=== PATIENT | female | born 1990 | race Caucasian/White ===

== ENCOUNTER 2023-01-24 14:40 | Emergency (ER) | payer OTHER ==
[2023-01-24] MEDS ORDERED: SODIUM CHLORIDE 0.9% 1,000 ML IV STA (15:14)
--- NOTE | 2023-01-24 15:17 | ED Physician Documentation ---
PD HPI FEMALE - Stated complaint Stated Complaint: CRAMPING FEMALE - Chief complaint Chief Complaint: Abd Pain - History obtained from History obtained from: Patient - Additional information Additional information: Patient is a 32-year-old female who Has recently taken 3 positive home test presenting for evaluation of vaginal bleeding that has been spotting and brighter red today. No clots. No significant lower abdominal pain. Her last menses was November 26. No prior history of pregnancies. No prior abdominal surgeries. Mild nausea but no vomiting. No dysuria or hematuria. Review of Systems Constitutional: denies: Fever Cardiac: denies: Chest pain / pressure Respiratory: denies: Dyspnea GI: denies: Abdominal Pain : reports: Vaginal bleeding. denies: Dysuria Neurologic: denies: Headache PD PAST MEDICAL HISTORY - Present Medications Home Medications: Ambulatory Orders Medication Instructions Recorded Confirmed No Known Home Medications 01/24/23 01/24/23 - Allergies Allergies/Adverse Reactions: Allergies Allergy/AdvReac Type Severity Reaction Status Date / Time No Known Drug Allergies Allergy Verified 01/24/23 14:58 PD ED PE NORMAL - General General: Alert and oriented X 3, No acute distress, Well developed/nourished - HEENT HEENT: Atraumatic - Neck Neck: Supple, no meningeal sign - Cardiac Cardiac: RRR, Strong equal pulses - Respiratory Respiratory: No respiratory distress, Clear bilaterally - Abdomen Abdomen: Soft, Non tender - Back Back: No CVA TTP - Derm Derm: Warm and dry - Neuro Neuro: Normal speech Results - Vitals Vitals: Vital Signs - 24 hr 01/24/23 01/24/23 14:53 17:00 Temperature 37.1 C Heart Rate 97 88 Respiratory 15 16 Rate Blood Pressure 150/113 H 128/80 O2 Saturation 98 99 Oxygen O2 Source Room air - Labs Labs: Laboratory Tests 01/24/23 01/24/23 01/24/23 15:14 15:14 15:14 WBC 7.9 RBC 5.37 Hgb 14.2 Hct 44.5 MCV 82.9 MCH 26.4 L MCHC 31.9 L RDW 12.8 Plt Count 378 MPV 8.9 Neut # (Auto) 4.8 Lymph # (Auto) 2.4 [place] # (Auto) 0.5 Eos # (Auto) 0.1 Baso # (Auto) 0.0 Absolute Nucleated RBC 0.00 Nucleated RBC % 0.0 Sodium 136 Potassium 3.9 Chloride 103 Carbon Dioxide 26 Anion Gap 7.0 BUN 9 Creatinine 0.6 Estimated GFR (MDRD) 114 Glucose 106 H Calcium 9.8 Total Bilirubin 0.4 AST 16 ALT 21 Alkaline Phosphatase 56 Total Protein 8.1 Albumin 4.6 Globulin 3.5 Albumin/Globulin Ratio 1.3 Lipase 15 Beta HCG, Quant Urine Color Urine Clarity Urine pH Ur Specific [place] Urine Protein Urine Glucose (UA) Urine Ketones Urine Occult Blood Urine Nitrite Urine Bilirubin Urine Urobilinogen Ur Leukocyte Esterase Urine RBC Urine WBC Ur Squamous Epith Cells Urine Bacteria Ur Microscopic Review Urine Culture Comments Blood Type A POSITIVE 01/24/23 01/24/23 15:14 16:05 WBC RBC Hgb Hct MCV MCH MCHC RDW Plt Count MPV Neut # (Auto) Lymph # (Auto) [place] # (Auto) Eos # (Auto) Baso # (Auto) Absolute Nucleated RBC Nucleated RBC % Sodium Potassium Chloride Carbon Dioxide Anion Gap BUN Creatinine Estimated GFR (MDRD) Glucose Calcium Total Bilirubin AST ALT Alkaline Phosphatase Total Protein Albumin Globulin Albumin/Globulin Ratio Lipase Beta HCG, Quant 6928.8 Urine Color YELLOW Urine Clarity CLEAR Urine pH 7.0 Ur Specific [place] 1.010 Urine Protein NEGATIVE Urine Glucose (UA) NEGATIVE Urine Ketones NEGATIVE Urine Occult Blood MODERATE H Urine Nitrite NEGATIVE Urine Bilirubin NEGATIVE Urine Urobilinogen 0.2 (NORMAL) Ur Leukocyte Esterase NEGATIVE Urine RBC 6-10 H Urine WBC 0-3 Ur Squamous Epith Cells MANY Squamous H Urine Bacteria Few Ur Microscopic Review INDICATED Urine Culture Comments NOT INDICATED Blood Type PD Medical Decision Making - ED course Complexity details: reviewed results, re-evaluated patient, d/w patient ED course: Patient is a 32-year-old with positive home test presenting for evaluation with vaginal bleeding. She has not had a confirmatory ultrasound. Initial BP is elevated but repeat is improved. Her abdominal exam is benign. Otherwise vitals are stable. A CBC, chemistries, hCG, urine analysis and blood type were obtained and reviewed. hCG is 6800. Blood type is a positive so she does not need RhoGAM. Ultrasound was obtained which shows a single live intrauterine measuring approximately 6 weeks. This does not exactly measure with her dates given. There is also the presence of subchorionic hemorrhage. I did review the results with the patient and she is aware of need for close OB follow-up as she may need repeat hCG or ultrasound. I did explain strict return precautions for any worsening symptoms. Departure - Departure Disposition: 01 Home, Self Care Instructions: ED Miscarriage Poss Follow-Up: SHERIF Helton [Provider Group] Comments: Your hormone level (hCG) is 6928. Your ultrasound shows that you are approximately 6 weeks . This is not matching up with the dates from your last menstrual period. Your blood type is A positive. [facility] for [facility]. You may need closer monitoring with recheck of your hormone level or another ultrasound as the dates from today's ultrasound is not matching up as well with your menstrual dates. There is a small amount of blood which may be the source of the vaginal bleeding you are experiencing. No sexual intercourse or tampons or anything in the vagina until the bleeding has resolved. Please continue with your vitamins. Return to the ER with any worsening symptoms such as saturating a pad with blood An hour for a few hours. TECHNIQUE: Real-time scanning was performed of the fetus and maternal pelvic organs, with image documentation. COMPARISON: None. FINDINGS: Intrauterine gestational sac present. Embryo: There is an intrauterine gestational sac seen, with a pole present, which measures 0.34 cm, which corresponds to an estimated gestational age of 6 weeks 0 days. cardiac activity is seen, with a measured heart rate of 133 bpm. There is p erigestational/subchorionic hemorrhage can be seen, which measures 0.45 x 0.37 x 0.66 cm. Internal debris can be seen within the gestational sac. Other: No perigestational fluid collection. Measurement variability in dating: +/- 4 weeks by LMP, +/- 7 days by mean sac diameter (use before 6 weeks gestation if crown-rump length not able to be measured), +/- 5 days by crown-rump length (6- 12 weeks gestation). Maternal organs: A cystic focus can be seen within the uterus, seen separate from the gestational sac near the uterine enlargement measuring up to 1.4 cm. Ovaries appear within normal limits. There is made of a left ovarian corpus luteum cyst. IMPRESSION: Single live intrauterine . Mild likely subchorionic hemorrhage. The estimated gestational age based upon these images is nearly 3 weeks discrepant from the menstrual dating. Please correlate with precise clinical dating. Forms: PCP List Discharge Date/Time: 01/24/23 17:01
[2023-01-24 15:21] LABS: BASOPHILS % (AUTO) 0.5 %; EOSINOPHILS # (AUTO) 0.1 10^3/uL (0.0-0.7); HCT - HEMATOCRIT 44.5 % (37.0-47.0); HGB - HEMOGLOBIN 14.2 g/dL (12.0-16.0); LYMPHOCYTES # (AUTO) 2.4 10^3/uL (1.5-3.5); LYMPHOCYTES % (AUTO) 30.6 %; MEAN CORPUSCULAR HEMOGLOBIN 26.4 pg (27.0-31.0); MEAN CORPUSCULAR HGB CONC 31.9 g/dL (32.0-36.0); MEAN CORPUSCULAR VOLUME 82.9 fL (81.0-99.0); MEAN PLATELET VOLUME 8.9 fL (7.9-10.8); MONOCYTES # (AUTO) 0.5 10^3/uL (0.0-1.0); MONOCYTES % (AUTO) 6.6 %; NEUTROPHILS # (AUTO) 4.8 10^3/uL (1.5-6.6); PLT - PLATELET COUNT 378 10^3/uL (130-450); RED BLOOD COUNT 5.37 10^6/uL (4.20-5.40); RED CELL DISTRIBUTION WIDTH 12.8 % (12.0-15.0); WHITE BLOOD COUNT 7.9 x10^3/uL (4.8-10.8)
[2023-01-24 15:37] LABS: ALBUMIN 4.6 g/dL (3.2-5.5); ALBUMIN/GLOBULIN RATIO 1.3 (1.0-2.2); BILIRUBIN,TOTAL 0.4 mg/dL (0.2-1.0); CALCIUM 9.8 mg/dL (8.5-10.3); CREATININE 0.6 mg/dL (0.6-1.3); POTASSIUM 3.9 mmol/L (3.5-4.5); TOTAL PROTEIN 8.1 g/dL (6.4-8.9)
[2023-01-24 16:11] LABS: BILIRUBIN,URINE NEGATIVE (NEGATIVE); GLUCOSE, URINE (UA) NEGATIVE (NEGATIVE); KETONES,URINE (UA) NEGATIVE (NEGATIVE); LEUKOCYTE ESTERASE, URINE NEGATIVE (NEGATIVE); NITRITE,URINE NEGATIVE (NEGATIVE); OCCULT BLOOD,URINE MODERATE (NEGATIVE); PROTEIN,URINE NEGATIVE (NEGATIVE); UROBILINOGEN,URINE 0.2 (NORMAL) E.U./dL (NORMAL)
--- NOTE | 2023-01-24 16:19 | Ultrasound Report ---
PROCEDURE: OB First Trimester INDICATIONS: Bleeding in early OUTSIDE/PRIOR DATING DATA: Last menstrual period (LMP): 11/26/2022. LMP-based estimated date of delivery (JAIRO): 09/02/2023. First dating scan (date and location): , 01/24/2023. Estimated date of delivery (JAIRO) from first dating scan: 09/19/2023. TECHNIQUE: Real-time scanning was performed of the fetus and maternal pelvic organs, with image documentation. COMPARISON: None. FINDINGS: Intrauterine gestational sac present. Embryo: There is an intrauterine gestational sac seen, with a pole present, which measures 0.3 4 cm, which corresponds to an estimated gestational age of 6 weeks 0 days. cardiac activity is seen, with a measured heart rate of 133 bpm. There is perigestational/subchorionic hemorrhage can b e seen, which measures 0.45 x 0.37 x 0.66 cm. Internal debris can be seen within the gestational sac . Other: No perigestational fluid collection. Measurement variability in dating: +/- 4 weeks by LMP, +/- 7 days by mean sac diameter (use before 6 weeks gestation if crown-rump length not able to be measured), +/- 5 days by crown-rump length (6-12 weeks gestation). Maternal organs: A cystic focus can be seen within the uterus, seen separate from the gestational sa c near the uterine enlargement measuring up to 1.4 cm. Ovaries appear within normal limits. There is made of a left ovarian corpus luteum cyst. IMPRESSION: Single live intrauterine . Mild likely subchorionic hemorrhage. The estimated gestational age based upon these images is nearly 3 weeks discrepant from the menstrual dating. Please correlate with precise clinical dating. There is a 1.4 similar cystic focus seen separate from the gestational sac near the uterine fundus. Close clinical follow-up with serial beta hCG measurements and serial ultrasound would be recommended , as clinically appropriate. Reviewed by: Bill Sorto MD on 01/24/2023 3:18 PM MACY Approved by: Bill Sorto MD on 01/24/2023 3:18 PM MACY Station ID: [id number]
[2023-01-24 16:20] LABS: CLARITY,URINE CLEAR (CLEAR)
--- NOTE | 2023-01-24 16:23 | Ultrasound Report ---
PROCEDURE: OB Transvaginal INDICATIONS: Bleeding in early OUTSIDE/PRIOR DATING DATA: Last menstrual period (LMP): 11/26/2022. LMP-based estimated date of delive ry (JAIRO): 09/02/2023. First dating scan (date and location): , 01/24/2023. Estimated date of delivery (JAIRO) from first dating scan: 09/19/2023. TECHNIQUE: Real-time scanning was performed of the fetus a nd maternal pelvic organs, with image documentation. COMPARISON: None. FINDINGS: Intrauterine gesta tional sac present. Embryo: There is an intrauterine gestational sac seen, with a pole present , which measures 0.34 cm, which corresponds to an estimated gestational age of 6 weeks 0 days. cardiac activity is seen, with a measured heart rate of 133 bpm. There is perigestational/subchorioni c hemorrhage can be seen, which measures 0.45 x 0.37 x 0.66 cm. Internal debris can be seen within th e gestational sac. Other: No perigestational fluid collection. Measurement variability in dating: + /- 4 weeks by LMP, +/- 7 days by mean sac diameter (use before 6 weeks gestation if crown-rump length not able to be measured), +/- 5 days by crown-rump length (6-12 weeks gestation). Maternal organs: A cystic focus can be seen within the uterus, seen separate from the gestational sac near the uterine enlargement measuring up to 1.4 cm. Ovaries appear within normal limits. There is made of a left ov carrie corpus luteum cyst. IMPRESSION: Single live intrauterine . Mild likely subchorionic hemorrhage. The estimated gestational age based upon these images is nearly 3 weeks discrepant from the menstrual dating. Plea se correlate with precise clinical dating. There is a 1.4 similar cystic focus seen separate from th e gestational sac near the uterine fundus. Close clinical follow-up with serial beta hCG measurement s and serial ultrasound would be recommended, as clinically appropriate. Reviewed by: Bill Sorto MD on 01/24/2023 3:21 PM [facility]Y Approved by: Bill Sorto MD on 01/24/2023 3:21 PM MACY Station ID: [id number]
[2023-01-24 16:25] LABS: BACTERIA,URINE Few /HPF (None Seen); SQUAMOUS EPITHELIAL CELL,UR MANY Squamous (<= Few); WBC,URINE 0-3 /HPF (0-5)
[2023-01-24 17:03] VITALS: BP 128/80
== END 2023-01-24 17:01 | disposition home or self-care (01) ==
LOC: ED 14:40
DX: O20.8 Other hemorrhage in early pregnancy (principal); Z3A.01 Less than 8 weeks gestation of pregnancy
CPT/HCPCS: 36415; 80053; 81001; 81003; 83690; 84702; 85025; 86900; 86901; 87086; 99283; 99284

== ENCOUNTER 2023-01-28 22:24 | Emergency (ER) | payer OTHER ==
[2023-01-28 23:04] LABS: BASOPHILS # (AUTO) 0.1 10^3/uL (0.0-0.1); BASOPHILS % (AUTO) 0.6 %; EOSINOPHILS # (AUTO) 0.1 10^3/uL (0.0-0.7); EOSINOPHILS % (AUTO) 1.1 %; HCT - HEMATOCRIT 40.8 % (37.0-47.0); HGB - HEMOGLOBIN 13.2 g/dL (12.0-16.0); LYMPHOCYTES # (AUTO) 2.8 10^3/uL (1.5-3.5); LYMPHOCYTES % (AUTO) 34.1 %; MEAN CORPUSCULAR HEMOGLOBIN 26.8 pg (27.0-31.0); MEAN CORPUSCULAR HGB CONC 32.4 g/dL (32.0-36.0); MEAN CORPUSCULAR VOLUME 82.9 fL (81.0-99.0); MONOCYTES # (AUTO) 0.7 10^3/uL (0.0-1.0); MONOCYTES % (AUTO) 8.6 %; NEUTROPHILS # (AUTO) 4.5 10^3/uL (1.5-6.6); NEUTROPHILS % (AUTO) 55.4 %; PLT - PLATELET COUNT 355 10^3/uL (130-450); RED BLOOD COUNT 4.92 10^6/uL (4.20-5.40); RED CELL DISTRIBUTION WIDTH 12.4 % (12.0-15.0); WHITE BLOOD COUNT 8.2 x10^3/uL (4.8-10.8)
[2023-01-28 23:18] LABS: ALBUMIN 4.1 g/dL (3.2-5.5); ALBUMIN/GLOBULIN RATIO 1.1 (1.0-2.2); BILIRUBIN,TOTAL 0.7 mg/dL (0.2-1.0); CALCIUM 9.1 mg/dL (8.5-10.3); CREATININE 0.7 mg/dL (0.4-1.0); POTASSIUM 3.8 mmol/L (3.5-5.0); TOTAL PROTEIN 7.7 g/dL (6.7-8.2)
--- NOTE | 2023-01-28 23:23 | ED Physician Documentation ---
PD HPI ABD PAIN - Stated complaint Stated Complaint: FEMALE - Chief complaint Chief Complaint: Abd Pain - History obtained from History obtained from: Patient - Additional information Additional information: 32yF, 6 wga by ultrasound dating from 5 days ago , p/w vaginal bleeding and cramping abdominal pain X 5 days. denies urinary sx. she did have ultrasound that showed subchorionic hemorrhage here on wednesday.patient is rho positive. PD PAST MEDICAL HISTORY - Past Surgical History Past Surgical History: No - Present Medications Home Medications: Ambulatory Orders Medication Instructions Recorded Confirmed No Known Home Medications 01/24/23 01/28/23 - Allergies Allergies/Adverse Reactions: Allergies Allergy/AdvReac Type Severity Reaction Status Date / Time No Known Drug Allergies Allergy Verified 01/28/23 22:41 - Social History Does the pt smoke?: No Smoking Status: Never smoker PD ED PE NORMAL - Vitals Vital signs reviewed: Yes - General General: Alert and oriented X 3, No acute distress, Well developed/nourished - HEENT HEENT: Atraumatic, PERRL, EOMI - Neck Neck: Supple, no meningeal sign - Cardiac Cardiac: RRR - Respiratory Respiratory: No respiratory distress, Clear bilaterally - Abdomen Abdomen: Non tender, Non distended, Other (6weeks gravid uterus) - Derm Derm: Normal color, Warm and dry - Neuro Neuro: No motor deficit, No sensory deficit Results - Vitals Vitals: Vital Signs - 24 hr 01/28/23 22:32 Temperature 37.1 C Heart Rate 93 Respiratory 17 Rate Blood Pressure 145/96 H O2 Saturation 100 Oxygen O2 Source Room air - Labs Labs: Laboratory Tests 01/28/23 01/28/23 22:57 22:57 WBC 8.2 RBC 4.92 Hgb 13.2 Hct 40.8 MCV 82.9 MCH 26.8 L MCHC 32.4 RDW 12.4 Plt Count 355 MPV 9.0 Neut # (Auto) 4.5 Lymph # (Auto) 2.8 [place] # (Auto) 0.7 Eos # (Auto) 0.1 Baso # (Auto) 0.1 Absolute Nucleated RBC 0.00 Nucleated RBC % 0.0 Sodium 134 L Potassium 3.8 Chloride 102 Carbon Dioxide 25 Anion Gap 7.0 BUN 12 Creatinine 0.7 Estimated GFR (MDRD) 96 Glucose 105 H Calcium 9.1 Total Bilirubin 0.7 AST 16 ALT 22 Alkaline Phosphatase 48 Total Protein 7.7 Albumin 4.1 Globulin 3.6 Albumin/Globulin Ratio 1.1 Lipase 33 Beta HCG, Quant 7407.0 PD Medical Decision Making - ED course ED course: 32yF presents to the ED with threatened . will obtain cbc, abdominal panel, hcg, u/s and reevaluate. patient declines pain meds. Labs benign. no FHR on u/s. d/w patient that this is no longer a viable . plan to f/u juvenile probation officer. return precautions given. Departure - Departure Disposition: 01 Home, Self Care Clinical Impression: Vaginal bleeding affecting early , Cramping affecting , antepartum Condition: Stable Instructions: Miscarriage Dc Comments: Please follow-up with your [facility]. Return to the emergency department if you have heavy vaginal bleeding going through more than 3 pads an hour or other concerns. Forms: PCP List
[2023-01-29 00:23] VITALS: BP 142/88
--- NOTE | 2023-01-29 01:04 | Ultrasound Report ---
PROCEDURE: OB First Trimester w/TV INDICATIONS: threatened miscarriage OUTSIDE/PRIOR DATING DATA: Last menstrual period (LMP): 11/26/2022. LMP-based estimated date of delivery (JAIRO): 09/02/2023. First dating scan (date and location): 01/24/2023. Estimated date of delivery (JAIRO) from first dating scan: 09/19/2023. TECHNIQUE: Real-time scanning was performed of the fetus and maternal pelvic organs, with image documentation. Endovaginal scanning was also performed to better visualize the fetus and maternal ovaries. COMPARISON: 01/24/2023. FINDINGS: Embryo: There is an intrauterine gestational sac, yolk sac, and pole. [place]-rump length measur es up to 1.3 cm corresponding to a gestational age of 7 weeks 3 days. The gestational sac and yolk sa c are irregular and elongated in morphology. No heart motion identified on M-mode Doppler or gr ayscale imaging. Other: There is a small heterogeneous subchorionic hematoma measuring approximately 3 x 0.7 x 1.2 cm. Maternal organs: Ovaries appear within normal size limits. There is a thick-walled cystic structure i n the left ovary measuring up to 2.5 cm compatible with a corpus luteum. IMPRESSION: 1. Single intrauterine with redemonstrated without motion identified. Given the assoc iated irregular morphology of the gestational sac and yolk sac, the findings are compatible with a sp ontaneous progress. Recommend clinical follow-up. 2. Heterogeneous subchorionic hematoma. Findings reported to Dr. Snow on 01/29/2023 at the conclusion of the study. Reviewed by: Garrett Bardales MD on 01/29/2023 1:03 AM PDT Approved by: Garrett Bardales MD on 01/29/2023 1:03 AM PDT Station ID: [id number]
== END 2023-01-29 00:17 | disposition home or self-care (01) ==
LOC: ED 22:24
DX: O20.9 Hemorrhage in early pregnancy, unspecified (principal); Z3A.01 Less than 8 weeks gestation of pregnancy; O26.891 Other specified pregnancy related conditions, first trimester; R10.9 Unspecified abdominal pain
CPT/HCPCS: 36415; 80053; 83690; 84702; 85025; 99283; 99284

== ENCOUNTER 2023-02-11 14:50 | Outpatient (CLI) | payer OTHER ==
[2023-02-11 14:58] LABS: HCT - HEMATOCRIT 44.8 % (37.0-47.0); HGB - HEMOGLOBIN 14.3 g/dL (12.0-16.0); MEAN CORPUSCULAR HEMOGLOBIN 26.6 pg (27.0-31.0); MEAN CORPUSCULAR HGB CONC 31.9 g/dL (32.0-36.0); MEAN CORPUSCULAR VOLUME 83.3 fL (81.0-99.0); MEAN PLATELET VOLUME 8.9 fL (7.9-10.8); RED BLOOD COUNT 5.38 10^6/uL (4.20-5.40); RED CELL DISTRIBUTION WIDTH 12.2 % (12.0-15.0); WHITE BLOOD COUNT 8.3 x10^3/uL (4.8-10.8)
== END 2023-02-11 14:51 | disposition home or self-care (01) ==
LOC: LAB 14:50
PROVIDERS: ATTEND Nurse Practitioner
DX: O03.9 Complete or unspecified spontaneous abortion without complication (principal)
CPT/HCPCS: 36415; 82728; 84702; 85027

== ENCOUNTER 2024-02-02 08:10 | Outpatient (CLI) | payer OTHER ==
[~2024-02-02 08:10] MED LIST: GADOTERATE MEGLUMINE 10 MMOL/20 ML VIAL ONE
[2024-02-02] MEDS: GADOTERATE MEGLUMINE 10 MMOL/20 ML VIAL IVP ONE (14:45)
--- NOTE | 2024-02-02 16:42 | MRI Report ---
PROCEDURE: Brain W/WO INDICATIONS: SARANYA SYNDROME CONTRAST: 15ml Clariscan TECHNIQUE: Noncontrast axial T1 spin echo, axial T2 fast spin echo, sagittal and axial FLAIR, coronal T2 fast sp in echo, axial gradient echo, axial diffusion and ADC through the brain. After the administration of contrast, axial and coronal T1 spin echo with fat saturation through the brain. COMPARISON: None. FINDINGS: Image quality: Excellent. CSF spaces: Basal cisterns are patent. No extra-axial fluid collections. Ventricles are normal in size and shape. Brain: No midline shift. No intracranial bleeds or masses. No abnormal intracranial enhancement. There is cerebral volume loss for age. There is periventricular white matter chronic small vessel is chemic change. The brainstem appears normal. Diffusion-weighted images demonstrate no acute ischemi c insults. No chronic ischemic insults. Normal intravascular flow voids are present. Pituitary gland is normal in size. There are no areas of delayed enhancement. No evidence of hemorrha ge. No abnormal enhancement. Skull and face: Calvarial marrow is normal in signal. Orbits appear normal. Sinuses: Sinuses and mastoids appear clear. IMPRESSION: Pituitary gland is within normal limits without evidence of hemorrhage. If concern persists, interval pituitary MRI may be obtained. Reviewed by: Ree Rene MD on 02/02/2024 4:41 PM PDT Approved by: Ree Rene MD on 02/02/2024 4:41 PM PDT Station ID: [id number]
== END 2024-02-02 08:11 | disposition home or self-care (01) ==
LOC: DI 08:10
PROVIDERS: ATTEND Nurse Practitioner Family
DX: Z98.890 Other specified postprocedural states (principal)
CPT/HCPCS: 70553; A9575